=== PATIENT | female | born 2000 | race Caucasian/White ===

== ENCOUNTER 2022-12-02 21:19 | Observation (INO) ==
[2022-12-02 21:55] LABS: Bacteria,Urine Occasional /HPF (Few); Mucus,Urine Few /LPF (Occasional); RBC,Urine 2 /HPF (0-4); Squamous Epithelial Cell,Urine Few /HPF (0-10)
[2022-12-02 21:56] LABS: Bilirubin,Urine Negative (Negative); Blood, Urine Negative (Negative); Glucose,Urine (UA) Negative (Negative); Ketones,Urine Negative (Negative); Nitrite,Urine Negative (Negative); Protein,Urine Negative (Negative); Urine Appearance Clear (Clear); Urine Color Yellow (Yellow); Urine Specific Gravity >= 1.030 (1.001-1.035); Urine Urobilinogen 0.2 eU/dL (<2.0); Urine pH 5.5 (4.5-8.0)
[2022-12-03] MEDS ORDERED: ONDANSETRON 4 MG/2 ML VIAL IV STA (00:13)
[2022-12-03] MEDS ORDERED: KETOROLAC 30 MG/1 ML VIAL IV STA (00:13)
[2022-12-03] MEDS ORDERED: SODIUM CHLORIDE 0.9% 1,000 ML IV STA (00:13)
[2022-12-03 00:34] LABS: Albumin 4.2 G/DL (3.4-5.0); Bilirubin,Total 0.4 MG/DL (0.20-1.00); Calcium 9.6 MG/DL (8.5-10.1); Osmolality,Calculated 272.8 MOS/KG (273-304); Potassium 3.5 MMOL/L (3.5-5.1); Total Protein 7.6 G/DL (6.4-8.2)
[2022-12-03 00:38] LABS: Basophils % 0.3 % (0.0-0.8); Eosinophils # 0.4 10*3/uL (0.0-0.87); Hematocrit 45.7 VOL% (35.7-47.0); Hemoglobin 15.5 GM/DL (12.0-16.0); Immature Granulocytes % 0.3 %; Immature Granulocytes Absolute 0.04 #; Lymphocytes % 33.3 % (21.3-54.2); Mean Corpuscular HGB Conc 33.9 GM/DL (32-36); Mean Corpuscular Volume 86.1 FL (87-102); Mean Platelet Volume 9.2 FL (9.6-12.0); Monocytes # 0.8 10*3/uL (0.11-0.8); Monocytes % 6.3 % (1.7-12.7); Neutrophils % 56.8 % (38.7-73.9); Platelet Count 343 T/CUMM (130-400); Red Blood Count 5.31 MC/CUMM (3.8-5.5); Red Cell Distribution Width 11.8 % (9.3-17.3); White Blood Count 11.9 T/CUMM (4-12)
[2022-12-03] MEDS ORDERED: SODIUM CHLORIDE 0.9% 1,000 ML IV SCH (03:33)
[2022-12-03] MEDS ORDERED: HYDROmorphone 1 MG/1 ML SYRINGE IV PRN (03:33)
[2022-12-03] MEDS ORDERED: ONDANSETRON 4 MG/2 ML VIAL IV PRN (03:33)
[2022-12-03] MEDS ORDERED: ACETAMINOPHEN 325 MG TABLET PO PRN (03:33)
[2022-12-03] MEDS ORDERED: PIPERACILLIN/TAZOBACTAM 3,375 MG in SODIUM CHLORIDE 0.9% 100 ML IV SCH (04:00)
[2022-12-03 05:23] LABS: Basophils % 0.4 % (0.0-0.8); Eosinophils # 0.4 10*3/uL (0.0-0.87); Eosinophils % 3.7 % (0.00-10.9); Hematocrit 39.3 VOL% (35.7-47.0); Hemoglobin 13.2 GM/DL (12.0-16.0); Immature Granulocytes % 0.2 %; Immature Granulocytes Absolute 0.02 #; Lymphocytes # 3.4 10*3/uL (1.4-4.0); Lymphocytes % 33.5 % (21.3-54.2); Mean Corpuscular HGB Conc 33.6 GM/DL (32-36); Mean Corpuscular Volume 85.2 FL (87-102); Mean Platelet Volume 9.2 FL (9.6-12.0); Monocytes # 0.5 10*3/uL (0.11-0.8); Monocytes % 5.3 % (1.7-12.7); Neutrophils % 56.9 % (38.7-73.9); Platelet Count 306 T/CUMM (130-400); Red Blood Count 4.61 MC/CUMM (3.8-5.5); Red Cell Distribution Width 11.7 % (9.3-17.3); White Blood Count 10.2 T/CUMM (4-12)
[2022-12-03] MEDS ORDERED: PANTOPRAZOLE 40 MG TABLET PO SCH (09:00)
[2022-12-03 09:32] VITALS: BP 119/73
== END 2022-12-03 09:29 | disposition home or self-care (01) ==
LOC: N.EDINP 21:19 → N.ED 21:19 → N.EDINP 12-03 09:30
PROVIDERS: ADMIT Surgery; ATTEND Surgery